=== PATIENT | male | born 1980 | race Native Hawaiian/Other Pacific Islander ===

== ENCOUNTER 2017-12-12 22:11 | Observation (INO) | payer OTHER ==
[~2017-12-12] VITALS: Ht 175.3 cm; Wt 99.5 kg
[2017-12-12 22:49] LABS: PLATELET COUNT 352 K/uL (142-355)
[2017-12-12 23:04] LABS: POTASSIUM 3.5 mmol/L (3.6-5.2)
[2017-12-12 23:59] VITALS: BP 123/84; TEMP 98.1; Ht 175.3 cm; Wt 99.5 kg
[2017-12-13] VITALS (10 sets, daily range): BP systolic 94–128; BP diastolic 50–85; TEMP 97.9–98.7
[2017-12-13] MEDS ORDERED: LEXAPRO10 MG (03:14)
[2017-12-14] VITALS: BP 113/73; TEMP 98.4
[2017-12-14 04:00] VITALS: BP 101/59; TEMP 98.3
--- NOTE | 2017-12-14 06:42 | NUR ---
12/13/2017 AT 2350PT. C/O UNABLE TO VOID SINCE COMING BACK FROM SURGERY AROUND 1730 TODAY. PT. STATES HE FEELS LIKE HE NEEDS TO VOID BUT IS UNABLE AND HAS BEEN DRINKING LOTS OF WATER AND TRYING TO VOID WITHOUT ANY SUCESS. [address] CRAWLEY PLACED WITHOUT DIFFICULTY. PT. TOLERATED WELL. PT. HAD 500 MLS OF CLEAR YELLOW URINE SOON CRAWLEY PLACED. CRAWLEY CLAMPED AND WILL DO BLADDER TRAINING DURING THE REMINDER OF THE SHIFT. PT. ADVISED TO CALL WHEN HE GETS THE SENSATION TO VOID. 12/14/2017 AT 0615 PT. CRAWLEY CATHETER UNCLAMPED 4 TIMES DURING THE SHIFT AND PT. STATES HE HAS HAD THE SENSATION TO VOID EACH TIME. DR. NAVA UPDATED ON CRAWLEY AND PT.S STATUS, DR. NAVA STATES TO LEAVE CRAWLEY AT THIS TIME AND HE WILL BE IN TO SEE PATIENT SOON.WILL CONTINUE TO MONITOR. CALL LIGHT WITHIN REACH.
[2017-12-14 06:48] LABS: PLATELET COUNT 328 K/uL (142-355)
[2017-12-14 07:01] LABS: POTASSIUM 4.5 mmol/L (3.6-5.2)
[2017-12-14 08:00] VITALS: BP 98/55; TEMP 98.2
[2017-12-14 12:00] VITALS: BP 112/74; TEMP 98.4
[2017-12-14 16:00] VITALS: BP 118/75; TEMP 98.6
--- NOTE | 2017-12-14 19:28 | NUR ---
IV D/C'd. NO REDNESS OR EDEMA. DISCHARGE INSTRUCTIONS SIGNED AND GIVEN. Pt. EXIT OUT OF FRONT ENTRANCE AMBULATING.
== END 2017-12-14 18:35 | disposition home or self-care (01) ==
LOC: MED/SURG 22:11
PROVIDERS: ADMIT Student in an Organized Health Care Education/Training Program
PROC: 0FT44ZZ Resection of Gallbladder, Percutaneous Endoscopic Approach (ICD-10-PCS; principal; 2017-12-13)
PROC: 0DTJ4ZZ Resection of Appendix, Percutaneous Endoscopic Approach (ICD-10-PCS; 2017-12-13)
DX: K80.12 Calculus of gallbladder with acute and chronic cholecystitis without obstruction (principal); K35.89 Other acute appendicitis
CPT/HCPCS: 36415; 51702; 80053; 85027; 96365; 96366; 96367; 96372; 96375; 99220; J0180; G0378; G0379; J0132; J0295; J0330; J1100; J1170; J1644; J1885; J2001; J2175; J2250; J2310; J2405; J2704; J2710; J2765; J3010; J3490; Q9963

== ENCOUNTER 2017-12-18 17:19 | Emergency (ER) | payer OTHER ==
[~2017-12-18] VITALS: Ht 175.3 cm; Wt 99.3 kg
[~2017-12-18 17:19] MED LIST: LEXAPRO10 MG
[2017-12-18 17:20] VITALS: TEMP 99.7
[2017-12-18 17:50] LABS: PLATELET COUNT 334 K/uL (142-355)
[2017-12-18 18:02] LABS: POTASSIUM 4.4 mmol/L (3.6-5.2)
[2017-12-18 21:19] VITALS: BP 145/88
== END 2017-12-18 21:19 | disposition home or self-care (01) ==
LOC: ED 17:19
DX: G89.18 Other acute postprocedural pain (principal); K62.5 Hemorrhage of anus and rectum; R10.84 Generalized abdominal pain
CPT/HCPCS: 80053; 81000; 85027; 85610; 85730; 96360; 96361; 96374; 96375; 99284; J2405; Q9963

== ENCOUNTER 2018-02-01 19:45 | Inpatient (IN) | payer OTHER ==
[~2018-02-01] VITALS: Ht 175.3 cm; Wt 90.5 kg
[2018-02-01 23:14] LABS: PLATELET COUNT 337 K/uL (142-355)
[2018-02-01 23:21] LABS: POTASSIUM 3.6 mmol/L (3.6-5.2)
[2018-02-02 01:38] VITALS: BP 128/89; TEMP 97.6; Ht 175.3 cm; Wt 90.5 kg
[2018-02-02] MEDS ORDERED: DOCU100C10 PO (02:28)
[2018-02-02] MEDS ORDERED: REQUIP1 MG PO (02:31)
[2018-02-02] MEDS ORDERED: PROBIOTI3 PO (02:33)
[2018-02-02] MEDS ORDERED: VANCOMYCIN125 MG OR (02:34)
[2018-02-02] MEDS ORDERED: TRINTELLIX10 MG PO (02:35)
[2018-02-02 04:00] VITALS: BP 93/58; TEMP 97.8
[2018-02-02 08:00] VITALS: BP 112/68; TEMP 97.6
[2018-02-02 12:00] VITALS: BP 130/95; TEMP 98.1
[2018-02-02 16:07] VITALS: BP 128/92; TEMP 97.7
[2018-02-02 20:00] VITALS: BP 140/93; TEMP 97.8
[2018-02-03] VITALS: BP 126/86; TEMP 97.8
[2018-02-03 04:06] VITALS: BP 119/70; TEMP 97.9
[2018-02-03 05:37] LABS: PLATELET COUNT 329 K/uL (142-355)
[2018-02-03 05:44] LABS: POTASSIUM 3.8 mmol/L (3.6-5.2)
[2018-02-03 08:00] VITALS: BP 113/67; TEMP 97.8
[2018-02-03 12:02] VITALS: BP 118/80; TEMP 98.1
[2018-02-03 16:05] VITALS: BP 136/95; TEMP 98.7
[2018-02-03 20:13] VITALS: BP 130/88; TEMP 98.7
[2018-02-04] VITALS: BP 120/80; TEMP 97.8
[2018-02-04 04:00] VITALS: BP 118/85; TEMP 97.8
[2018-02-04 06:22] LABS: PLATELET COUNT 326 K/uL (142-355)
[2018-02-04 08:09] VITALS: BP 111/80; TEMP 98.5
[2018-02-04 12:03] VITALS: BP 146/111; TEMP 98.1
[2018-02-04 16:05] VITALS: BP 129/98; TEMP 98.8
[2018-02-04 20:00] VITALS: BP 156/94; TEMP 98.3
[2018-02-05 00:10] VITALS: BP 150/86; TEMP 98.2
[2018-02-05 04:00] VITALS: BP 100/64; TEMP 98.6
[2018-02-05 08:00] VITALS: BP 124/87; TEMP 98.5
[2018-02-05 10:11] LABS: PLATELET COUNT 386 K/uL (142-355)
[2018-02-05 10:22] LABS: POTASSIUM 4.2 mmol/L (3.6-5.2)
[2018-02-05 12:00] VITALS: BP 124/73; TEMP 97.9
[2018-02-05 16:00] VITALS: BP 126/94; TEMP 98.3
[2018-02-05 20:00] VITALS: BP 129/88; TEMP 98
[2018-02-06] VITALS: BP 99/62; TEMP 98.1
[2018-02-06 04:00] VITALS: BP 96/74; TEMP 98
[2018-02-06 08:08] VITALS: BP 94/58; TEMP 98
[2018-02-06 12:03] VITALS: BP 108/75; TEMP 98.2
== END 2018-02-06 14:29 | disposition home or self-care (01) | DRG 373 ==
LOC: MED/SURG 19:45
PROVIDERS: ADMIT Student in an Organized Health Care Education/Training Program
DX: A04.72 Enterocolitis due to Clostridium difficile, not specified as recurrent (principal); F41.8 Other specified anxiety disorders
CPT/HCPCS: 36415; 80048; 80053; 80074; 81000; 83874; 85027; 86318; 87015; 87040; 87045; 87324; 87449; 87535; 87899; 96372; G0432; J1200; J1644; J2270; J2405; J2550; J3490; Q9963

== ENCOUNTER 2018-05-17 10:11 | Outpatient (CLI) | payer OTHER ==
[~2018-05-17 10:11] MED LIST changes: +DOCU100C10 PO; +PROBIOTI3 PO; +REQUIP1 MG PO; +TRINTELLIX10 MG PO; +VANCOMYCIN125 MG OR
== END 2018-05-17 10:15 | disposition short-term general hospital (02) ==
LOC: AMB 10:11
DX: T15.82XA Foreign body in other and multiple parts of external eye, left eye, initial encounter (principal); T15.81XA Foreign body in other and multiple parts of external eye, right eye, initial encounter; X58.XXXA Exposure to other specified factors, initial encounter; Y93.89 Activity, other specified; Y92.89 Other specified places as the place of occurrence of the external cause; T65.93XA Toxic effect of unspecified substance, assault, initial encounter
CPT/HCPCS: A0425; A0427

== ENCOUNTER 2018-05-17 10:20 | Emergency (ER) | payer OTHER ==
[~2018-05-17] VITALS: Ht 175.3 cm; Wt 97.5 kg
[2018-05-17 10:30] VITALS: TEMP 97.5
[2018-05-17 10:54] LABS: PLATELET COUNT 339 K/uL (142-355)
[2018-05-17 11:02] LABS: POTASSIUM 3.2 mmol/L (3.6-5.2)
[2018-05-17 12:30] VITALS: BP 124/84
== END 2018-05-17 12:34 | disposition short-term general hospital (02) ==
LOC: ED 10:20
PROVIDERS: Emergency Medicine
DX: T20.40XA Corrosion of unspecified degree of head, face, and neck, unspecified site, initial encounter (principal); Z77.098 Contact with and (suspected) exposure to other hazardous, chiefly nonmedicinal, chemicals; T32.0 Corrosions involving less than 10% of body surface; Y08.89XA Assault by other specified means, initial encounter; Y92.89 Other specified places as the place of occurrence of the external cause
CPT/HCPCS: 36415; 80053; 85027; 93005; 94664; 96361; 96365; 96374; 99285; J1200; J2930

== ENCOUNTER 2019-02-06 12:35 | Outpatient (CLI) | payer OTHER | END 2019-02-06 23:18 | disposition home or self-care (01) | LOC: RESP 12:35 | DX: M54.12 Radiculopathy, cervical region (principal) | CPT/HCPCS: 95885; 95911 ==